=== PATIENT | female | born 1945 | race Caucasian/White ===

== ENCOUNTER 2017-07-25 03:27 | Inpatient (IN) | payer OTHER, MEDICARE ==
[~2017-07-25] VITALS: Ht 165.1 cm; Wt 77.1 kg
[~2017-07-25 03:27] MED LIST: ATORVASTATIN CA10 M1 PO; FISH OIL 1,0001 EACH PO; HYZAAR 100-12.1 EACH PO; LEVOTHYROXINE PO; LEVOTHYROXINE150 MCG PO; MAPAP500 M2 PO; PEPCID COMPLET1 EACH PO; PEPCID PO; PRADAXA150 M1 PO; VITAMIN B125000 MC1 PO; VITAMIN D2000 UNIT PO
--- NOTE | 2017-07-25 11:06 | Patient Discharge Instructions ---
Discharge Instructions General Discharge Information You were seen/treated for: DEGENERATIVE JOINT DISEASE You had these procedures: RIGHT TOTAL HIP REPLACEMENT Watch for these problems: FEVER OVER 101 DRAINAGE FROM WOUND No bath, but you may shower: Yes Other wound care: DRY DRESSING CHANGE DAILY OK TO SHOWER Special Instructions: HOLD PRADAXA ON DISCHARGE, TO RESUME TAKING PRADAXA PRESCRIBED ON 08/08/17. TAKE ELIQUIS ON DISCHARGE UNTIL 08/08/17. Diet Continue normal diet: Yes Activity Activity Self Limited: Yes Activity Limited to: Weight bear as tolerated Acute Coronary Syndrome Inclusion Criteria At DC or during hospital stay patient has or had the following: ACS DIAGNOSIS No Discharge Core Measures Meds if any: Prescribed or Continued at Discharge Meds if any: NOT Prescribed or Continued at Discharge Congestive Heart Failure Inclusion Criteria At DC or during hospital stay patient has or had the following: CHF DIAGNOSIS No Discharge Core Measures Meds if any: Prescribed or Continued at Discharge Meds if any: NOT Prescribed or Continued at Discharge Cerebrovascular accident Inclusion Criteria At DC or during hospital stay patient has or had the following: CVA/TIA Diagnosis No Discharge Core Measures Meds if any: Prescribed or Continued at Discharge Meds if any: NOT Prescribed or Continued at Discharge Venous thromboembolism Inclusion Criteria VTE Diagnosis No VTE Type NONE VTE Confirmed by (Test) NONE Discharge Core Measures - Per Current guidelines, there needs to be overlap - treatment for the first 5 days of Warfarin therapy. - If discharged on Warfarin prior to 5 days of - overlap therapy, the patient will need to be - assessed for post discharge needs including - *Post discharge parental anticoagulation - *Warfarin and/or parental anticoagulation education - *Follow up date to check INR post discharge At least 5 days overlap therapy as Inpatient No Meds if any: Prescribed or Continued at Discharge Note: Overlap Therapy is Warfarin and Anticoagulant Meds if any: NOT Prescribed or Continued at Discharge
--- NOTE | 2017-07-25 11:09 | Admission Core Measures ---
Acute Coronary Syndrome (CM) ACS Core Measures Acute Coronary Syndrome Diagnosis No Congestive Heart Failure (NEW) CHF Core Measures Congestive Heart Failure Diagnosis No Cerebrovascular Accident (NEW) CVA Core Measures CVA/TIA Diagnosis No Venous Thromboembolism VTE Core Aga (View Protocol) VTE Risk Factors Surgery No Mechanical VTE Prophylaxis d/t N/A MechProphylax Ordered No VTE Pharm Prophylaxis d/t NA PharmProphylax ordered Problem List As ranked by this Provider includes Assessment & Plan 1. Status post total hip replacement, right HOME MEDS Home Med List Apixaban (Eliquis) 2.5 MG TABLET 1 TAB PO BID ANTICOAGULATION Atorvastatin Calcium 10 MG TABLET 1 TAB PO QPM CHOLESTEROL (Reported) Dabigatran Etexilate Mesylate (Pradaxa 150 MG) 150 MG CAPSULE 1 CAP PO BID AFIB (Reported) Docusate Sodium (Colace) 100 MG CAPSULE 1 CAP PO BID STOOL SOFTENER Famotidine/Ca Carb/Mag Hydrox (Pepcid Complete Tablet Chew) 10 MG-800 MG-165 MG TAB.CHEW 2 TAB PO PRN GI (Reported) Hydromorphone HCl (Dilaudid) 2 MG TABLET 1-2 TAB PO Q4-6 PRN PRN PAIN Levothyroxine Sodium 150 MCG TABLET 1 TAB PO DAILY THYROID (Reported) Losartan/Hydrochlorothiazide (Hyzaar 100-12.5 Tablet) 100 MG-12.5 MG TABLET 1 TAB PO DAILY BP (Reported) [place]-3 Fatty Acids/Fish Oil (Fish Oil 1,000 MG Capsule) 340 MG-1,000 MG CAPSULE 1 CAP PO DAILY SUPPLEMENT (Reported) Ondansetron (Zofran Odt) 4 MG TAB.RAPDIS 1 TAB SL TID PRN NAUSEA/VOMITING Polyethylene Glycol 3350 (Miralax) 17 GRAM POWD.PACK 1 PAC PO DAILY CONSTIPATION Discontinued Medications Acetaminophen (Mapap) 500 MG CAPSULE 2 TAB PO PRN PAIN (Reported) Discontinued reason: Med no longer needed Cholecalciferol (Vitamin D3) (Vitamin D) 2,000 UNIT CAPSULE 1 CAP PO DAILY SUPPLEMENT (Reported) Discontinued reason: Per Doctor Decision Cyanocobalamin (Vitamin B-12) (Vitamin B12) 5,000 MCG TAB.RAPDIS 1 TAB PO DAILY SUPPLEMENT (Reported) Discontinued reason: Per Doctor Decision Dabigatran Etexilate Mesylate (Pradaxa 150 MG) 150 MG CAPSULE 1 CAP PO BID AFIB (Reported) Discontinued reason: Per Doctor Decision
--- NOTE | 2017-07-25 11:23 | Surgical Discharge Summary ---
Visit Information Visit Dates Admission Date: 07/25/17 Discharge Date: 07/27/17 History of Present Illness Chief Complaint: RIGHT HIP PAIN Surgical History Pertinent Surgical History: unobtainable Review of Systems: OK Hospital Course Course Attending Physician: Aldo Abreu MD Primary Care Physician: Kurt STONE,Karen Yanez Hospital Course: PT HAD A RIGHT TOTAL HIP REPLACEMENT ON 07/25/[address] ABREU. SHE WAS AMBULATING WITH PT, VOIDING AND HER PAIN WAS MANAGED WITH ORAL MEDICATIONS. HER PRADAXA WAS HELD AND SHE WAS STARTED ON ELIQUIS, WHICH SHE WILL TAKE FOR A TOTAL OF [address] ABREU WANTS HER TO RESUME HER PRADAXA. SHE WAS DEEMED SAFE FOR DISCHARGE TO HOME WITH SERVICES Allergies: Coded Allergies: Cephalosporins (RASH 07/21/17) procainamide (RASH 07/21/17) Disposition Summary Disposition Principal Diagnosis: RIGHT HIP OA Additional Diagnosis: SEE H AND P Discharge Disposition: home health services Discharge Instructions General Discharge Information Code Status: Full Code Patient's Diet: REGULAR Patient's Activity: WBAT Follow-Up Instructions/Appts: TO FU WITH [facility] IN 6 WEEKS FROM DATE OF SURGERY Medications at Discharge Discharge Medications: Stop taking the following medications: Dabigatran Etexilate Mesylate (Pradaxa 150 MG) 150 MG CAPSULE ORAL TWICE DAILY Cyanocobalamin (Vitamin B-12) (Vitamin B12) 5,000 MCG TAB.RAPDIS ORAL DAILY Cholecalciferol (Vitamin D3) (Vitamin D) 2,000 UNIT CAPSULE ORAL DAILY Acetaminophen (Mapap) 500 MG CAPSULE ORAL as needed for PAIN Continue taking these medications: Atorvastatin Calcium (Atorvastatin Calcium) 10 MG TABLET 1 Tablet ORAL Every night Losartan/Hydrochlorothiazide (Hyzaar 100-12.5 Tablet) 100 MG-12.5 MG TABLET 1 Tablet ORAL DAILY Levothyroxine Sodium (Levothyroxine Sodium) 150 MCG TABLET 1 Tablet ORAL DAILY [place]-3 Fatty Acids/Fish Oil (Fish Oil 1,000 MG Capsule) 340 MG-1,000 MG CAPSULE 1 Capsule ORAL DAILY Famotidine/Ca Carb/Mag Hydrox (Pepcid Complete Tablet Chew) 10 MG-800 MG-165 MG TAB.CHEW 2 Tablet ORAL as needed for GI Dabigatran Etexilate Mesylate (Pradaxa 150 MG) 150 MG CAPSULE 1 Capsule ORAL TWICE DAILY Instructions: HOLD WHILE TAKING ELIQUIS. TO RE-START ON FEBUARY 5, 2018 Start taking the following new medications: Docusate Sodium (Colace) 100 MG CAPSULE 1 Capsule ORAL TWICE DAILY Qty = 14 No Refills Instructions: STOP TAKING IF YOU DEVELOP LOOSE STOOL/DIARRHEA. Polyethylene Glycol 3350 (Miralax) 17 GRAM POWD.PACK 1 Packet ORAL DAILY Qty = 7 No Refills Instructions: dissolve in water. STOP TAKING IF YOU DEVELOP LOOSE STOOL/DIARRHEA. Hydromorphone HCl (Dilaudid) 2 MG TABLET 1-2 Tablet ORAL EVERY 4-6 HOURS NEEDED as needed for PAIN Qty = 36 No Refills Instructions: . Apixaban (Eliquis) 2.5 MG TABLET 1 Tablet ORAL TWICE DAILY Qty = 26 No Refills Instructions: TAKE FOR A TOTAL OF 2 WEEKS, TO STOP TAKING ON 08/08/17 AND THEN RE-START PRADAXA. Ondansetron (Zofran Odt) 4 MG TAB.RAPDIS 1 Tablet SUBLINGUAL THREE TIMES DAILY as needed for NAUSEA/VOMITING Qty = 15 No Refills
[2017-07-25] MEDS ORDERED: PRADAXA150 M1 PO (11:38)
[2017-07-25] MEDS ORDERED: DILAUDID2 M1 PO (11:55)
[2017-07-25] MEDS ORDERED: MIRALAX17 G1 PO (11:55)
[2017-07-25] MEDS ORDERED: COLACE100 M1 PO (11:55)
[2017-07-25] MEDS ORDERED: ELIQUIS2.5 M1 PO (11:55)
--- NOTE | 2017-07-25 12:09 | RADIOLOGY REPORT ---
EXAMINATION: XR HIP, RIGHT CLINICAL INFORMATION: Right total hip replacement. COMPARISON: None. TECHNIQUE: AP and crosstable lateral views (3 images) of the right hip. FINDINGS: The right total hip arthroplasty appears well seated in near-anatomic alignment. There is no evidence of hardware failure, loosening, or fracture. Mild degenerative changes and trace effusion are identified in the limited lateral view of the right knee. IMPRESSION: Intact-appearing right total hip arthroplasty.
[2017-07-25 12:15] VITALS: BP 128/68
--- NOTE | 2017-07-25 12:45 | PN- Orthopedic ---
Subjective Subjective: POC feeling good, pain well controlled, spinal worn off. no oob yet- awaiting pt eval. due to void postop. awaiting lunch Objective Vital Signs and I&Os Vital Signs Date Time Temp Pulse Resp B/P B/P Pulse O2 O2 Flow FiO2 Mean Ox Delivery Rate 07/25 1215 97.8 68 18 128/68 100 Nasal 2.0L Cannula Physical Exam: gen- nad card- rrr pulm- no audible wheeze abd- soft nt ext- right hip dressing cdi, ttp at incision, palp dp, calves soft nt bl, alps on, gross sensation intact, +dorsi/plantar flexion bl Assessment/Plan Assessment/Plan A- 72F POD0 sp R ELIS, PMHx htn, hypothyroid, awaiting pt eval, otherwise stable. P- - elquis x2 weeks then resume home med pradaxa, alps - pt, wbat - due to void postop - diet as tolerated - home meds - dc planning - will dw attending Core Measures Venous Thromboembolism VTE Risk Factors Surgery No Mechanical VTE Prophylaxis d/t N/A MechProphylax Ordered No VTE Pharm Prophylaxis d/t NA PharmProphylax ordered Core Measures Venous Thromboembolism VTE Risk Factors Surgery No Mechanical VTE Prophylaxis d/t N/A MechProphylax Ordered No VTE Pharm Prophylaxis d/t NA PharmProphylax ordered
[2017-07-25 15:21] VITALS: BP 114/56
--- NOTE | 2017-07-25 15:40 | Operative Report ---
Operative/Inv Procedure Report Surgery Date: 07/25/17 Name of Procedure: Right total hip replacement Pre-Operative Diagnosis: Primary right hip DJD Post-Operative Diagnosis: Same Estimated Blood Loss: 250 Surgeon/[employer]: Mariama STONE,Aldo Marino Anesthesia: block Operative/Procedure Note Note: Description of Procedure: The patient was taken to the operating room and positively identified. After induction of spinal anesthesia and administration of appropriate pre-operative antibiotics, the patient was positioned supine on the operating room table and all bony prominences were well padded. After performing a surgical timeout, the right lower extremity was prepped and draped in the usual sterile fashion. A direct anterior approach was made to the right hip. The incision was carried sharply through superficial soft tissues to the level of the fascia. Meticulous hemostasis was maintained with Bovie electocautery. The fascia over the tensor fascia clover muscle was opened sharply and the interval between the TFL and the sartorius was entered bluntly taking care to stay lateral to the lateral femoral cutaneous nerve. Retractors were placed around the femoral neck and the pericapsular fat was identified. The ascending branches of the lateral femoral circumflex vessels were identified and carefully coagulated. The pericapsular fat and anterior capsule were then resected. A napkin ring osteotomy was performed and the femoral head was removed without difficulty. Attention was then turned to the acetabulum. After appropriate placement of retractors, the acetabulum was exposed. Soft tissue was cleaned from the acetabular margin and notch. Overhanging osteophytes were removed and the teardrop was exposed. The acetabulum was then sequentially reamed to accept a 54 mm Lina Tritanium hemispherical solid shell. This was impacted into place in the appropriate position and fitted with a 36 mm Trident X3 zero degree polyethylene insert. Attention was then turned to the femur. After performing the appropriate ligament releases, the proximal femur was exposed. It was then sequentially broached to accept a size 6 Lina secure fit advanced 127 stem. This was trialed for leg length and stability. The trial component was removed and the final component was impacted into place. The trunnion was carefully cleaned and fit with a 36 mm, +0 Biolox delta ceramic femoral head. The hip was reduced and put through a full range of motion and found to be stable. The articular space was then irrigated with sterile saline. The periarticular soft tissues were infilitrated with Marcaine. The fascial layer was closed with interrupted #1 vicryl suture and the skin was re-approximated with interrupted 2 -0 vicryl. The skin was closed with a running 3-0 V-Lock suture. Steri-strips and a sterile dressing were applied. The patient was awakened and taken to the recovery room in satisfactory condition.
[2017-07-25 16:15] VITALS: BP 104/54
[2017-07-25 18:01] VITALS: BP 112/62
[2017-07-25 22:00] VITALS: BP 100/60
[2017-07-26 01:44] VITALS: BP 104/58
[2017-07-26 06:50] VITALS: BP 106/62
[2017-07-26 08:54] LABS: ABSOLUTE BASOPHIL COUNT 0 /CUMM (0.0-0.2); ABSOLUTE EOSINOPHIL COUNT 0.1 /CUMM (0.0-0.7); ABSOLUTE GRANULOCYTE CT 6.4 /CUMM (1.4-6.5); ABSOLUTE LYMPH COUNT 1.3 /CUMM (1.2-3.4); ABSOLUTE MONOCYTE COUNT 0.4 /CUMM (0.10-0.60); BASOPHIL % 0.4 % (0.0-2.0); EOSINOPHIL % 1.3 % (0-5); GRANULOCYTE % 77.3 % (42.2-75.2); HEMATOCRIT 31.9 % (37-47); MEAN CORPUSCULAR HGB 27.8 PG (27.0-31.0); MEAN CORPUSCULAR HGB CONC 33.5 G/DL (33.0-37.0); MEAN PLATELET VOLUME 8.1 FL (7.4-10.4); PLATELET COUNT 233 /CUMM (130-400); RBC DISTRIBUTION WIDTH 14.4 % (11.5-14.5); RED BLOOD CELL CT 3.84 /CUMM (4.20-5.40); WHITE BLOOD CELL COUNT 8.3 /CUMM (4.8-10.8)
--- NOTE | 2017-07-26 09:04 | PN- Orthopedic ---
Subjective Subjective: Patient doing well, pain is controlled, she has been ambulatory to the bathroom, voided spontaneously, in good spirits, no fever or chills Objective Vital Signs and I&Os Vital Signs Date Time Temp Pulse Resp B/P B/P Pulse O2 O2 Flow FiO2 Mean Ox Delivery Rate 07/26 0832 74 104/58 07/26 0650 98.2 79 20 106/62 96 Room Air 07/26 0144 98.1 79 20 104/58 93 Room Air 07/25 2200 98.3 75 20 100/60 100 Room Air 07/25 1801 97.5 70 20 112/62 99 Room Air 07/25 1615 96.2 62 20 104/54 99 Room Air Room Air 07/25 1521 97.6 64 18 114/56 99 07/25 1215 100 Nasal 2.0L Cannula 07/25 1215 97.8 68 18 128/68 100 Nasal 2.0L Cannula Intake & Output 07/26 1600 07/26 0800 07/26 0000 07/25 1600 07/25 0800 07/25 0000 Intake Total 780 1430 600 Output Total 1350 Balance 780 80 600 Intake, IV 300 150 Intake, Oral 480 1280 600 Number 0 Bowel Movements Output, Urine 1350 Patient 170 lb Weight Weight Reported by Patient Measurement Method Physical Exam: Well-developed well-nourished no apparent distress. HEENT: Atraumatic, extraocular motion intact Neck: Supple, no lymphadenopathy Respiratory: No respiratory distress Extremities: No edema RIGHT lower extremity hip dressing in place, Dressing clean dry and intact Mild thigh swelling No signs of infection. No shortening or rotation Hip range of motion is limited and without unexpected pain Neurovascularly intact distally Bilateral calves are supple, nontender. Neuro: Alert and oriented x3 Psych: Mood affect normal, normal memory normal judgment. Skin: Warm and dry, no rash on exposed skin Results Last 48 Hours of Labs: Laboratory Tests 07/26 07 Chemistry Sodium Pending Potassium Pending Chloride Pending Carbon Dioxide Pending Anion Gap Pending BUN Pending Creatinine Pending BUN/Creatinine Ratio Pending Hematology CBC w Diff Pending WBC Pending RBC Pending Hgb Pending Hct Pending MCV Pending MCH Pending RDW Pending Plt Count Pending MPV Pending PUBS MCHC Pending Assessment/Plan Assessment/Plan Postop day 1 status post right total hip arthroplasty anterior approach Perioperative antibiotics. Pain medication as needed. Out of bed Physical therapy, weightbearing as tolerated Regular diet Follow a.m. labs Eliquis 2.5 mg by mouth twice a day 2 weeks for DVT prophylaxis, then restart Pradaxa for chronic A. fib ALPS for DVT prophylaxis Regular home meds Dressing change postop day 2 Possible discharge home after lunch today with [facility] services pending upon pain and clearance of physical therapy Core Measures Venous Thromboembolism VTE Risk Factors Surgery No Mechanical VTE Prophylaxis d/t N/A MechProphylax Ordered No VTE Pharm Prophylaxis d/t NA PharmProphylax ordered
[2017-07-26 14:13] VITALS: BP 112/70
[2017-07-26] MEDS ORDERED: COLACE100 M1 PO (20:06)
[2017-07-26] MEDS ORDERED: DILAUDID2 M1 PO (20:06)
[2017-07-26] MEDS ORDERED: ELIQUIS2.5 M1 PO (20:06)
[2017-07-26] MEDS ORDERED: MIRALAX17 G1 PO (20:06)
[2017-07-26 22:47] VITALS: BP 122/52
[2017-07-27 06:54] VITALS: BP 108/52
[2017-07-27] MEDS ORDERED: ZOFRAN ODT4 M1 SL (07:15)
--- NOTE | 2017-07-27 07:24 | PN- Orthopedic ---
Subjective Subjective: POD#2 S/P RIGHT ELIS NON MAJOR ISSUES OVERNIGHT DENEIS CP, SOB, NO N+V WITH DIET Objective Vital Signs and I&Os Vital Signs Date Time Temp Pulse Resp B/P B/P Pulse O2 O2 Flow FiO2 Mean Ox Delivery Rate 07/27 0654 98.2 78 20 108/52 93 07/26 2247 100.1 76 20 122/52 95 Room Air 07/26 1413 99.8 85 20 112/70 99 07/26 1230 Room Air 07/26 0832 74 104/58 Intake & Output 07/27 0800 07/27 0000 07/26 1600 07/26 0800 07/26 0000 07/25 1600 Intake Total 360 1020 380 734 5168 600 Output Total 700 828 321 7854 Balance -340 420 250 780 80 600 Intake, IV 20 300 150 Intake, Oral 360 1000 438 326 7024 600 Number 0 0 Bowel Movements Output, Urine 700 250 092 1710 Patient 170 lb Weight Weight Reported by Patient Measurement Method Physical Exam: CV: RRR\ LUNGS: CLEAR ABD: SOFT, +BS EXT: DRSG CHANGED, WOUND C/D/I NO CALF TENDERNESS BILAT Assessment/Plan Assessment/Plan ORTH STABLE PLAN HOME DC/ LATER TODAY Core Measures Venous Thromboembolism VTE Risk Factors Surgery No Mechanical VTE Prophylaxis d/t N/A MechProphylax Ordered No VTE Pharm Prophylaxis d/t NA PharmProphylax ordered
[2017-07-27 10:49] VITALS: BP 128/72
[2017-07-27] MEDS ORDERED: DILAUDID2 M1 PO ×2 (13:00→13:02)
== END 2017-07-27 13:15 | disposition home health service (06) | DRG 470 ==
LOC: SDA 03:27 → ENRESERV 11:25 → ENTRNSPT 11:53 → EDTRNSPTSTS 11:57 → EDTRNSPT 11:57 → CMPTRNSPT 12:18 → 2NB 12:19 → ENPENDDIS 07-27 07:35 → ENTRNSPT 07-27 13:01 → EDTRNSPTSTS 07-27 13:08 → 2NB 07-27 13:15 → CMPTRNSPT 07-27 13:32
PROVIDERS: Physician Assistant Surgical
PROC: 0SR904A Replacement of Right Hip Joint with Ceramic on Polyethylene Synthetic Substitute, Uncemented, Open Approach (ICD-10-PCS; principal; 2017-07-25)
DX: M16.11 Unilateral primary osteoarthritis, right hip (principal); I48.91 Unspecified atrial fibrillation; I10 Essential (primary) hypertension; K21.9 Gastro-esophageal reflux disease without esophagitis
CPT/HCPCS: 2NBSP; 36415; 73502-RT; 82436; 97110-GO; 97116-GO; J0131; J0690; J0735; J2405; J2550; J3101; J3490; J7042